=== PATIENT | female | born 1955 | race Caucasian/White ===

== ENCOUNTER 2017-12-30 21:13 | Emergency (ER) | payer BC ==
[~2017-12-30] VITALS: Ht 167.6 cm; Wt 76.2 kg
[~2017-12-30 21:13] MED LIST: AZIT250 PO; AZIT500 PO; CEFP200; CEPH500 PO; CYCL10 PO; Cleocin HCl300 MG PO; DOC250 PO; DOCU100 PO; ESTMEDA; ESTMEDA PO; FAMO20; FEXPSEER PO; FLUT.05NI; FURO20 PO; GUAPSEER PO; HYDACE10B PO; HYDACE25S PR; HYDACE5 PO; HYDACE7.5 PO; HYDCOR1TOA TOP; Hydrocodone-Ap1 EA20 PO; IBUP400; IBUP600 PO; IBUP800; LEVFLO500 PO; MELO7.5 PO; META800 PO; METO10 PO; MONT10T; Mucinex1200 MG PO; NAPR500 PO; NAPR500EC; NAPR550 PO; Norco 5-325 Ta1 EACH PO; OXYACE5T PO; OXYACE7.5T PO; PHENA200 PO; POTCHL20ER PO; PRED10; RXCLIN PO; RXHYDMOR2 PO; RXOXYACE PO; SULTRIDS PO; TEMA15 PO; TEMA30 PO; TIZA4; TRAM50 PO; TRIA55OI; TRIAOIA; Triamterene W/1 EACH; Ultram50 MG PO; Vibramycin100 MG PO; ZOLP12.5 PO; ZOLP5 PO; Zanaflex4 MG PO; [UNRECOGNIZED DRUG - OTHER]; [UNRECOGNIZED DRUG - REMARK]
[2017-12-30 21:45] LABS: BASOPHILS ABSOLUTE AUTO 0.07 K/mm3 (0.00-0.23); BASOPHILS PERCENT AUTO 1 % (0-2); EOSINOPHILS ABSOLUTE AUTO 0.27 K/mm3 (0.00-0.68); EOSINOPHILS PERCENT AUTO 4 % (0-6); Hematocrit 40.9 % (33.0-51.0); Hemoglobin 13.8 g/dL (11.5-16.0); IMMATURE GRAN ABSOLUTE AUTO 0.05 K/mm3 (0.00-0.10); IMMATURE GRAN PERCENT AUTO 1 % (0-1); LYMPHOCYTES ABSOLUTE AUTO 2.53 K/mm3 (0.84-5.20); LYMPHOCYTES PERCENT AUTO 34 % (21-46); MONOCYTES PERCENT AUTO 11 % (4-13); Mean Corpuscular HGB 34.9 pg (26.0-34.0); Mean Corpuscular HGB Conc 33.7 g/dL (31.5-36.5); Mean Corpuscular Volume 104 fL (80-100); NEUTROPHILS ABSOLUTE AUTO 3.64 K/mm3 (1.96-9.15); NEUTROPHILS PERCENT AUTO 49 % (41-73); Platelet Count 231 K/mm3 (150-400); RDW Coefficient Variation 11.4 % (11.7-14.2); RDW Standard Deviation 43.8 fL (35.1-46.3); Red Blood Cell Count 3.95 M/mm3 (3.80-5.20); White Blood Cell Count 7.36 K/mm3 (4.00-11.30)
[2017-12-30 22:01] LABS: Alanine Aminotransfer (ALT/SGP 45 U/L (12-78); Albumin, Blood 3.7 g/dL (3.4-5.0); Alk Phos 153 U/L (50-136); Anion Gap 9 mmol/L (6-16); Aspartate Aminotrans (AST/SGOT 61 U/L (12-37); Bilirubin, Total 0.4 mg/dL (0.1-1.0); Blood Urea Nitrogen 8 mg/dL (8-24); Bun/Creatinine Ratio 13.8 (12.0-20.0); CO2, Blood 26 mmol/L (21-32); Calcium, Blood 8.4 mg/dL (8.5-10.1); Chloride, Blood 102 mmol/L (98-108); Creatinine, Blood 0.58 mg/dL (0.40-1.00); Globulin, Blood 3.8 g/dL (2.2-4.0); Glomerular Filtration Rate >60 (60-); Glucose, Blood 99 mg/dL (70-99); Potassium, Blood 3.6 mmol/L (3.5-5.5); Sodium, Blood 137 mmol/L (136-145); Total Protein, Blood 7.5 g/dL (6.4-8.2)
[2017-12-30] MEDS ORDERED: GENPREOPSU (22:43)
[2017-12-30] MEDS ORDERED: HYDR1TAB94 PO (23:39)
[2017-12-30] MEDS ORDERED: MINO100 PO (23:39)
== END 2017-12-31 00:08 | disposition home or self-care (01) ==
LOC: ER 21:13
PROVIDERS: Emergency Medicine
DX: L03.116 Cellulitis of left lower limb (principal); L03.115 Cellulitis of right lower limb; M54.5 Low back pain; Z88.0 Allergy status to penicillin; Z88.2 Allergy status to sulfonamides; Z79.899 Other long term (current) drug therapy; Z79.52 Long term (current) use of systemic steroids; F17.200 Nicotine dependence, unspecified, uncomplicated
CPT/HCPCS: 36415; 80053; 83605; 85025; 96374; 99283-25; J0690

== ENCOUNTER 2018-08-21 15:45 | Emergency (ER) | payer MEDICARE, OTHER ==
[~2018-08-21] VITALS: Ht 167.6 cm; Wt 77.1 kg
[~2018-08-21 15:45] MED LIST changes: +GENPREOPSU; +HYDR1TAB94 PO; +MINO100 PO
[2018-08-21 16:22] LABS: BASOPHILS ABSOLUTE AUTO 0.07 K/mm3 (0.00-0.23); BASOPHILS PERCENT AUTO 1 % (0-2); EOSINOPHILS ABSOLUTE AUTO 0.19 K/mm3 (0.00-0.68); EOSINOPHILS PERCENT AUTO 3 % (0-6); Hematocrit 40.8 % (33.0-51.0); Hemoglobin 13.4 g/dL (11.5-16.0); IMMATURE GRAN ABSOLUTE AUTO 0.03 K/mm3 (0.00-0.10); IMMATURE GRAN PERCENT AUTO 1 % (0-1); LYMPHOCYTES ABSOLUTE AUTO 1.62 K/mm3 (0.84-5.20); LYMPHOCYTES PERCENT AUTO 26 % (21-46); MONOCYTES ABSOLUTE AUTO 0.59 K/mm3 (0.16-1.47); MONOCYTES PERCENT AUTO 10 % (4-13); Mean Corpuscular HGB 35.2 pg (26.0-34.0); Mean Corpuscular HGB Conc 32.8 g/dL (31.5-36.5); Mean Corpuscular Volume 107 fL (80-100); Mean Platelet Volume 9.3 fL (9.1-12.4); NEUTROPHILS ABSOLUTE AUTO 3.66 K/mm3 (1.96-9.15); NEUTROPHILS PERCENT AUTO 59 % (41-73); Platelet Count 187 K/mm3 (150-400); RDW Coefficient Variation 11.6 % (11.7-14.2); RDW Standard Deviation 45.8 fL (35.1-46.3); Red Blood Cell Count 3.81 M/mm3 (3.80-5.20); White Blood Cell Count 6.16 K/mm3 (4.00-11.30)
[2018-08-21 16:38] LABS: Alanine Aminotransfer (ALT/SGP 64 U/L (12-78); Albumin, Blood 3.5 g/dL (3.4-5.0); Alk Phos 172 U/L (50-136); Anion Gap 6 mmol/L (6-16); Aspartate Aminotrans (AST/SGOT 147 U/L (12-37); Bilirubin, Total 0.7 mg/dL (0.1-1.0); Blood Urea Nitrogen 7 mg/dL (8-24); Bun/Creatinine Ratio 13.9 (12.0-20.0); CO2, Blood 28 mmol/L (21-32); Calcium, Blood 8.4 mg/dL (8.5-10.1); Chloride, Blood 101 mmol/L (98-108); Globulin, Blood 3.5 g/dL (2.2-4.0); Glomerular Filtration Rate >60 (60-); Glucose, Blood 103 mg/dL (70-99); Potassium, Blood 4.1 mmol/L (3.5-5.5); Sodium, Blood 135 mmol/L (136-145)
[2018-08-21] MEDS ORDERED: Percocet 5-3251 EACH PO (17:17)
== END 2018-08-21 17:36 | disposition home or self-care (01) ==
LOC: ER 15:45
PROVIDERS: Physician Assistant
DX: S20.211A Contusion of right front wall of thorax, initial encounter (principal); F17.210 Nicotine dependence, cigarettes, uncomplicated; Z79.899 Other long term (current) drug therapy; Z88.0 Allergy status to penicillin; Z88.2 Allergy status to sulfonamides; W18.09XA Striking against other object with subsequent fall, initial encounter
CPT/HCPCS: 36415; 71046; 80053; 85025; 93005; 93010; 96374; 96375; 99284-25; J2405; J3010

== ENCOUNTER 2018-11-19 15:50 | Emergency (ER) | payer MEDICARE, OTHER ==
[~2018-11-19] VITALS: Ht 167.6 cm; Wt 77.1 kg
[~2018-11-19 15:50] MED LIST changes: +Percocet 5-3251 EACH PO
[2018-11-19] MEDS ORDERED: Percocet 5-3251 EACH PO (16:05)
== END 2018-11-19 16:08 | disposition home or self-care (01) ==
LOC: ER 15:50
DX: L25.9 Unspecified contact dermatitis, unspecified cause (principal); Z76.0 Encounter for issue of repeat prescription; Z88.0 Allergy status to penicillin; Z88.2 Allergy status to sulfonamides; Z79.899 Other long term (current) drug therapy; F17.200 Nicotine dependence, unspecified, uncomplicated
CPT/HCPCS: 99281

== ENCOUNTER 2019-01-16 16:14 | Emergency (ER) | payer MEDICARE, OTHER ==
[~2019-01-16] VITALS: Ht 167.6 cm; Wt 70.3 kg
[2019-01-16] MEDS ORDERED: Norco 5-325 Ta1 EACH PO (17:37)
== END 2019-01-16 17:40 | disposition home or self-care (01) ==
LOC: ER 16:14
DX: M25.561 Pain in right knee (principal); Z88.2 Allergy status to sulfonamides; Z79.899 Other long term (current) drug therapy; F17.200 Nicotine dependence, unspecified, uncomplicated; Z88.0 Allergy status to penicillin
CPT/HCPCS: 99283

== ENCOUNTER 2019-03-03 18:48 | Emergency (ER) | payer MEDICARE, OTHER ==
[~2019-03-03] VITALS: Ht 167.6 cm; Wt 72.6 kg
[2019-03-03] MEDS ORDERED: HYDR1TAB94 PO ×3 (19:08→20:01)
[2019-03-03] MEDS ORDERED: Prempro 0.625-1 EACH PO (19:11)
[2019-03-03] MEDS ORDERED: Hydrocodone-Ap1 EA20 PO (19:12)
== END 2019-03-03 19:33 | disposition home or self-care (01) ==
LOC: ER 18:48
DX: S82.891D Other fracture of right lower leg, subsequent encounter for closed fracture with routine healing (principal); Z76.0 Encounter for issue of repeat prescription; F17.200 Nicotine dependence, unspecified, uncomplicated; Z88.0 Allergy status to penicillin; Z88.2 Allergy status to sulfonamides
CPT/HCPCS: 99281

== ENCOUNTER 2019-05-09 07:54 | Emergency (ER) | payer MEDICARE, OTHER ==
[~2019-05-09] VITALS: Ht 167.6 cm; Wt 68.0 kg
[~2019-05-09 07:54] MED LIST changes: +Prempro 0.625-1 EACH PO
[2019-05-09 08:35] LABS: BASOPHILS ABSOLUTE AUTO 0.07 K/mm3 (0.00-0.23); BASOPHILS PERCENT AUTO 1 % (0-2); EOSINOPHILS ABSOLUTE AUTO 0.26 K/mm3 (0.00-0.68); EOSINOPHILS PERCENT AUTO 4 % (0-6); Hematocrit 42.1 % (33.0-51.0); Hemoglobin 14.1 g/dL (11.5-16.0); IMMATURE GRAN ABSOLUTE AUTO 0.05 K/mm3 (0.00-0.10); IMMATURE GRAN PERCENT AUTO 1 % (0-1); LYMPHOCYTES ABSOLUTE AUTO 2.42 K/mm3 (0.84-5.20); LYMPHOCYTES PERCENT AUTO 32 % (21-46); MONOCYTES ABSOLUTE AUTO 0.83 K/mm3 (0.16-1.47); MONOCYTES PERCENT AUTO 11 % (4-13); Mean Corpuscular HGB 34.8 pg (26.0-34.0); Mean Corpuscular HGB Conc 33.5 g/dL (31.5-36.5); Mean Corpuscular Volume 104 fL (80-100); Mean Platelet Volume 8.9 fL (9.1-12.4); NEUTROPHILS ABSOLUTE AUTO 3.89 K/mm3 (1.96-9.15); NEUTROPHILS PERCENT AUTO 52 % (41-73); Platelet Count 264 K/mm3 (150-400); RDW Coefficient Variation 12.5 % (11.7-14.2); Red Blood Cell Count 4.05 M/mm3 (3.80-5.20); White Blood Cell Count 7.52 K/mm3 (4.00-11.30)
[2019-05-09 08:52] LABS: Alanine Aminotransfer (ALT/SGP 59 U/L (12-78); Albumin, Blood 3.6 g/dL (3.4-5.0); Albumin/Globulin Ratio 0.9 (0.8-1.8); Alk Phos 183 U/L (50-136); Anion Gap 10 mmol/L (6-16); Aspartate Aminotrans (AST/SGOT 102 U/L (12-37); Bilirubin, Total 0.4 mg/dL (0.1-1.0); Blood Urea Nitrogen 4 mg/dL (8-24); Bun/Creatinine Ratio 8.7 (12.0-20.0); CO2, Blood 28 mmol/L (21-32); Calcium, Blood 8.9 mg/dL (8.5-10.1); Chloride, Blood 103 mmol/L (98-108); Creatinine, Blood 0.46 mg/dL (0.40-1.00); Globulin, Blood 3.9 g/dL (2.2-4.0); Glomerular Filtration Rate >60 (60-); Glucose, Blood 81 mg/dL (70-99); Potassium, Blood 3.2 mmol/L (3.5-5.5); Sodium, Blood 141 mmol/L (136-145); Total Protein, Blood 7.5 g/dL (6.4-8.2)
[2019-05-09] MEDS ORDERED: CEPH500 PO (09:14)
[2019-05-09] MEDS ORDERED: HYDR1TAB94 PO (09:18)
== END 2019-05-09 09:25 | disposition home or self-care (01) ==
LOC: ER 07:54
PROVIDERS: Physician Assistant
DX: L03.115 Cellulitis of right lower limb (principal); F17.200 Nicotine dependence, unspecified, uncomplicated; Z88.0 Allergy status to penicillin; Z88.2 Allergy status to sulfonamides
CPT/HCPCS: 36415; 80053; 85025; 93971; 99284-25; A9270-GY

== ENCOUNTER 2019-08-28 05:23 | Emergency (ER) | payer MEDICARE, OTHER ==
[~2019-08-28] VITALS: Ht 167.6 cm; Wt 72.6 kg
== END 2019-08-28 07:12 | disposition home or self-care (01) ==
LOC: ER 05:23
DX: S09.90XA Unspecified injury of head, initial encounter (principal); S30.0XXA Contusion of lower back and pelvis, initial encounter; S20.02XA Contusion of left breast, initial encounter; J30.9 Allergic rhinitis, unspecified; F17.210 Nicotine dependence, cigarettes, uncomplicated; Z88.0 Allergy status to penicillin; Z88.2 Allergy status to sulfonamides; W19.XXXA Unspecified fall, initial encounter
CPT/HCPCS: 99283; A9270

== ENCOUNTER 2019-09-19 22:45 | Emergency (ER) | payer MEDICARE ==
[~2019-09-19] VITALS: Ht 167.6 cm; Wt 70.8 kg
[2019-09-19] MEDS ORDERED: TRAM50 PO (23:18)
== END 2019-09-19 23:30 | disposition home or self-care (01) ==
LOC: ER 22:45
DX: S93.401A Sprain of unspecified ligament of right ankle, initial encounter (principal); F17.210 Nicotine dependence, cigarettes, uncomplicated; Z88.0 Allergy status to penicillin; Z88.2 Allergy status to sulfonamides
CPT/HCPCS: 73610; 99283-25; A9270

== ENCOUNTER 2019-10-04 23:01 | Emergency (ER) | payer MEDICARE ==
[~2019-10-04] VITALS: Ht 167.6 cm; Wt 68.0 kg
[2019-10-05 01:02] LABS: BASOPHILS ABSOLUTE AUTO 0.07 K/mm3 (0.00-0.23); BASOPHILS PERCENT AUTO 1 % (0-2); EOSINOPHILS ABSOLUTE AUTO 0.17 K/mm3 (0.00-0.68); EOSINOPHILS PERCENT AUTO 2 % (0-6); Hematocrit 43.5 % (33.0-51.0); Hemoglobin 14.8 g/dL (11.5-16.0); IMMATURE GRAN ABSOLUTE AUTO 0.12 K/mm3 (0.00-0.10); IMMATURE GRAN PERCENT AUTO 1 % (0-1); LYMPHOCYTES ABSOLUTE AUTO 2.45 K/mm3 (0.84-5.20); LYMPHOCYTES PERCENT AUTO 27 % (21-46); MONOCYTES ABSOLUTE AUTO 0.91 K/mm3 (0.16-1.47); MONOCYTES PERCENT AUTO 10 % (4-13); Mean Corpuscular HGB 35.7 pg (26.0-34.0); Mean Corpuscular Volume 105 fL (80-100); Mean Platelet Volume 9.2 fL (9.1-12.4); NEUTROPHILS ABSOLUTE AUTO 5.37 K/mm3 (1.96-9.15); NEUTROPHILS PERCENT AUTO 59 % (41-73); Platelet Count 246 K/mm3 (150-400); RDW Coefficient Variation 11.7 % (11.7-14.2); RDW Standard Deviation 45.1 fL (35.1-46.3); Red Blood Cell Count 4.15 M/mm3 (3.80-5.20); White Blood Cell Count 9.09 K/mm3 (4.00-11.30)
[2019-10-05 01:14] LABS: Ethanol (Alcohol), Blood, Med 18 mg/dL
[2019-10-05 01:15] LABS: International Normalized Ratio 1.04; Prothrombin Time Results 11.1 Sec (9.7-11.5)
[2019-10-05 01:19] LABS: Alanine Aminotransfer (ALT/SGP 28 U/L (12-78); Albumin, Blood 3.3 g/dL (3.4-5.0); Albumin/Globulin Ratio 0.8 (0.8-1.8); Alk Phos 116 U/L (50-136); Anion Gap 9 mmol/L (6-16); Aspartate Aminotrans (AST/SGOT 36 U/L (12-37); Bilirubin, Total 0.6 mg/dL (0.1-1.0); Blood Urea Nitrogen 4 mg/dL (8-24); Bun/Creatinine Ratio 7.8 (12.0-20.0); CO2, Blood 26 mmol/L (21-32); Calcium, Blood 8.8 mg/dL (8.5-10.1); Chloride, Blood 103 mmol/L (98-108); Creatinine, Blood 0.51 mg/dL (0.40-1.00); Globulin, Blood 3.9 g/dL (2.2-4.0); Glomerular Filtration Rate >60 (60-); Glucose, Blood 76 mg/dL (70-99); Potassium, Blood 3.4 mmol/L (3.5-5.5); Sodium, Blood 138 mmol/L (136-145); Total Protein, Blood 7.2 g/dL (6.4-8.2); Troponin I <0.015 ng/mL (0.000-0.040)
[2019-10-05 01:53] LABS: Source, Urine Clean Catch
[2019-10-05 02:04] LABS: Bilirubin, Urine Neg (Neg); Blood, Urine Neg (Neg); Glucose Qualitative, Urine Neg (Neg); Ketones, Urine Neg (Neg); Leukocyte Esterase, Urine 1+ (Neg); Nitrite, Urine Neg (Neg); Protein, Urine Neg (Neg); Specific Gravity, Urine 1.005 (1.003-1.022); Urobilinogen, Urine NORM (Normal)
[2019-10-05 02:05] LABS: Appearance, Urine Clear (Clear); Color, Urine Yellow (P-Yellow)
[2019-10-05 02:13] LABS: Red Blood Cells, Urine 0-2 /hpf (0-2); Squamous Epithelial Cells Few /hpf (Few)
[2019-10-05 02:14] LABS: Bacteria Mod /hpf
[2019-10-05 02:37] LABS: U Amphetamine Screen Not Detected; U Barbituate Screen Not Detected; U Benzodiazapine Screen Not Detected; U Buprenorphine Screen Not Detected; U Cannabinoids Screen Not Detected; U Cocaine Screen Not Detected; U Methadone Screen Not Detected; U Methamphetamine Screen Not Detected; U Opiates Screen Not Detected; U Oxycodone Screen Not Detected; U Phencyclidine Screen Not Detected; U Propoxyphene Screen Not Detected
[2019-10-05] MEDS ORDERED: Norco 5-325 Ta1 EACH PO (10:46)
== END 2019-10-05 03:43 | disposition home or self-care (01) ==
LOC: ER 23:01
PROVIDERS: Physician Assistant
DX: S09.90XA Unspecified injury of head, initial encounter (principal); Z88.0 Allergy status to penicillin; Z88.2 Allergy status to sulfonamides; F17.210 Nicotine dependence, cigarettes, uncomplicated; W22.8XXA Striking against or struck by other objects, initial encounter
CPT/HCPCS: 70450; 71260; 72125; 74177; 80053; 81001; 83690; 84484; 85025; 85610; 87086; 93005; 93010; 99284-25; A9270-GY; G0480; L0160; Q9967

== ENCOUNTER 2019-10-05 09:35 | Emergency (ER) | payer MEDICARE ==
[~2019-10-05] VITALS: Ht 167.6 cm; Wt 68.0 kg
[2019-10-05] MEDS ORDERED: Norco 5-325 Ta1 EACH PO (10:46)
== END 2019-10-05 10:53 | disposition home or self-care (01) ==
LOC: ER 09:35
DX: G89.11 Acute pain due to trauma (principal); M79.18 Myalgia, other site; Z88.0 Allergy status to penicillin; Z88.2 Allergy status to sulfonamides; F17.210 Nicotine dependence, cigarettes, uncomplicated; W19.XXXA Unspecified fall, initial encounter
CPT/HCPCS: 99283

== ENCOUNTER 2019-10-27 02:37 | Inpatient (IN) | payer MEDICARE ==
[~2019-10-27] VITALS: Ht 167.6 cm; Wt 85.9 kg
[2019-10-27 03:16] LABS: BASOPHILS ABSOLUTE AUTO 0.11 K/mm3 (0.00-0.23); BASOPHILS PERCENT AUTO 1 % (0-2); EOSINOPHILS ABSOLUTE AUTO 0.01 K/mm3 (0.00-0.68); EOSINOPHILS PERCENT AUTO 0 % (0-6); Hematocrit 46.9 % (33.0-51.0); Hemoglobin 15.8 g/dL (11.5-16.0); IMMATURE GRAN ABSOLUTE AUTO 0.11 K/mm3 (0.00-0.10); IMMATURE GRAN PERCENT AUTO 1 % (0-1); LYMPHOCYTES PERCENT AUTO 6 % (21-46); MONOCYTES PERCENT AUTO 5 % (4-13); Mean Corpuscular HGB 34.7 pg (26.0-34.0); Mean Corpuscular HGB Conc 33.7 g/dL (31.5-36.5); Mean Corpuscular Volume 103 fL (80-100); NEUTROPHILS ABSOLUTE AUTO 13.94 K/mm3 (1.96-9.15); NEUTROPHILS PERCENT AUTO 88 % (41-73); RDW Coefficient Variation 11.6 % (11.7-14.2); RDW Standard Deviation 43.9 fL (35.1-46.3); Red Blood Cell Count 4.55 M/mm3 (3.80-5.20); White Blood Cell Count 15.87 K/mm3 (4.00-11.30)
[2019-10-27 03:21] LABS: Mean Platelet Volume 9.2 fL (9.1-12.4); Platelet Count 245 K/mm3 (150-400)
[2019-10-27 03:27] LABS: Alanine Aminotransfer (ALT/SGP 29 U/L (12-78); Albumin, Blood 3.6 g/dL (3.4-5.0); Albumin/Globulin Ratio 0.8 (0.8-1.8); Alk Phos 190 U/L (50-136); Anion Gap 9 mmol/L (6-16); Aspartate Aminotrans (AST/SGOT 42 U/L (12-37); Bilirubin, Total 0.7 mg/dL (0.1-1.0); Blood Urea Nitrogen 6 mg/dL (8-24); Bun/Creatinine Ratio 10.8 (12.0-20.0); CO2, Blood 26 mmol/L (21-32); Chloride, Blood 99 mmol/L (98-108); Creatinine, Blood 0.56 mg/dL (0.40-1.00); Globulin, Blood 4.3 g/dL (2.2-4.0); Glomerular Filtration Rate >60 (60-); Glucose, Blood 91 mg/dL (70-99); Potassium, Blood 3.8 mmol/L (3.5-5.5); Sodium, Blood 134 mmol/L (136-145); Total Protein, Blood 7.9 g/dL (6.4-8.2)
--- NOTE | 2019-10-27 05:21 | NUR ---
PT ARRIVED TO ROOM VIA GURNEY, TRANSFERED TO BED. PT C/O PAIN, NO ORDERS FOR PAIN MEDS. PLACED CALL OUT TO DR. STEWART. PT REFUSING TO MOVE IN BED AT THIS TIME.
--- NOTE | 2019-10-27 11:28 | NUR ---
DR INGRAM HERE TO SEE PT.
[2019-10-27 11:50] LABS: Source, Urine Voided
[2019-10-27 12:11] LABS: Bilirubin, Urine Neg (Neg); Blood, Urine 1+ (Neg); Glucose Qualitative, Urine Neg (Neg); Ketones, Urine 2+ (Neg); Leukocyte Esterase, Urine 3+ (Neg); Nitrite, Urine Neg (Neg); Protein, Urine Neg (Neg); Specific Gravity, Urine 1.025 (1.003-1.022); Urobilinogen, Urine NORM (Normal)
[2019-10-27 12:24] LABS: Appearance, Urine Clear (Clear); Color, Urine Amber (P-Yellow)
[2019-10-27 12:25] LABS: Bacteria Mod /hpf; Squamous Epithelial Cells Mod /hpf (Few); White Blood Cells, Urine 25-50 /hpf (0-5); Yeast/Fungi Urine Few /hpf
--- NOTE | 2019-10-27 13:26 | NUR ---
DR INGRAM HERE TO SEE PT, REPORTS PT MAY EAT AND NPO AFTER MIDNIGHT. REPORTS IF PT ALLOWS MAY PLACE 5# BUCKS TRACTION.
--- NOTE | 2019-10-27 18:35 | NUR ---
SHIFT SUMMARY PT NOW EATING AND DRINKING, TO BE NPO AFTER MN. PT BEEN MED PRN FOR PAIN MULT TIMES TODAY. PT REFUSING CARE AT TIMES. BRANTLEY WAS PLACED THIS AFTERNOON BY FEMALE PROFILE TRIMMER. LINEN WAS REMOVED FROM UNDER HER AFTER SHE WAS MEDICATED FOR PAIN. PT MORE COOPERATIVE THIS EVENING. MULT DR BEEN TO SEE PT, DISCUSSED PT'S STATUS WITH THEM INCLUDING LABS, PAIN, IRRITABILITY. PT CONT TO REFUSE SOME OF CARE. CALL LIGHT IN REACH. IVF IN PLACE.
[2019-10-27 19:54] LABS: Source, Urine Catheter
--- NOTE | 2019-10-27 20:00 | NUR ---
ASSUMED PT CARE AT 1915 PT ALERT AND ORIENTED AND ABLE TO MAKE HER NEEDS KNOWN. STATES SHE IS VERY PAINFUL AND REQUESTING IV PAIN MEDS. STATES SHE WAS DUE AT 1900; HOWEVER, KNEW THAT NURSING STAFF WAS BUSY WITH CHANGE OF SHIFT. PT APPEARS VERY ANXIOUS REGARDING PAIN. MEDICATED WITH 50MCG OF FENTANYL PER ORDERS WITH MINIMAL RELIEF. PT REFUSING TO BE TURNED OR REPOSITIONED D/T PAIN IN LEFT HIP. STATES HER APPETITE IS POOR. REMINDED PT SHE WOULD BE NPO AT MIDNIGHT FOR SURGERY TOMORROW JUST IN CASE SHE FELT HUNGRY PRIOR. NS CONTINUES INFUSING AT 75MLS/HR X1L BAG; ALMOST COMPLETE. CALL LIGHT WITHIN REACH.
[2019-10-27 20:07] LABS: Bilirubin, Urine Neg (Neg); Blood, Urine Neg (Neg); Glucose Qualitative, Urine Neg (Neg); Ketones, Urine 1+ (Neg); Leukocyte Esterase, Urine Neg (Neg); Nitrite, Urine Neg (Neg); Protein, Urine Neg (Neg); Urobilinogen, Urine NORM (Normal)
[2019-10-27 20:20] LABS: Appearance, Urine Clear (Clear); Color, Urine Yellow (P-Yellow)
--- NOTE | 2019-10-27 20:31 | NUR ---
PT OFF TO XRAY
--- NOTE | 2019-10-27 21:00 | NUR ---
PT RETURNED FROM XRAY TRANSFERRED BACK INTO BED WITH THE ASSIST OF 5 STAFF MEMBERS. PT HIGHLY ANXIOUS REGARDING ANY MOVEMENT TO LEFT HIP. EDUCATED AND REASSURED PT THAT WE WOULD HELP WITH STABILIZING LEG. PT TOLERATED FAIRLY; HOLLERED OUT IN PAIN, BUT ABLE TO RECOVER.
--- NOTE | 2019-10-28 05:26 | NUR ---
END OF SHIFT SUMMARY PT REMAINS PAINFUL MOST OF SHIFT. CALLS FREQUENTLY ASKING FOR PAIN MEDICATIONS. DISCUSSED MULTIPLE TIMES WITH PT REALISTIC GOALS OF PAIN LEVEL AND MANAGEMENT. SHE APPEARS TO BE NONSENSICAL AT TIMES AND CONFUSES HER TIMING OF MEDICATION ADMINISTRATION. PT BECOMES VERY IRRITABLE IF SHE IS NOT DUE FOR ANY PAIN MEDS. DISCUSSED TECHNIQUE OF STACKING PAIN MEDICATIONS TO MAKE AVAILABLE EVERY TWO HOURS; THEREFORE, SHE WASN'T GETTING EVERYTHING AT THE BEGINNING OF HER FOUR HOUR TIME FRAME. HOWEVER, PT STILL INSISTENT ON RECEIVING PAIN MEDICATIONS WHENEVER SHE REQUESTS THEM. SEE EMAR FOR MED ADMINISTRATION DETAILS. PT REFUSED TURNING AND REPOSITIONING MOST OF SHIFT D/T FEAR OF LEFT HIP PAIN. AT 0400 ROUNDS PT DID ALLOW ME TO POSITION A PILLOW UNDER HER RIGHT HIP TO OFFLOAD PRESSURE, WHICH APPEARED EFFECTIVE FOR HER. CALL LIGHT WITHIN REACH; PT IS ABLE TO MAKE HER NEEDS KNOWN. BRANTLEY CATHETER IS PATENT AND DRAINING TO GRAVITY; DARK, JOANNA COLORED URINE. 18G STARTED TO LEFT AC D/T ONLY ACCESS BEING A 22G TO RIGHT FA. PT SCHEDULED FOR SURGERY THIS MORNING AND HAS BEEN NPO AFTER MIDNIGHT.
[2019-10-28 05:30] LABS: BASOPHILS ABSOLUTE AUTO 0.06 K/mm3 (0.00-0.23); BASOPHILS PERCENT AUTO 1 % (0-2); EOSINOPHILS ABSOLUTE AUTO 0.14 K/mm3 (0.00-0.68); EOSINOPHILS PERCENT AUTO 2 % (0-6); Hematocrit 44.4 % (33.0-51.0); Hemoglobin 14.7 g/dL (11.5-16.0); IMMATURE GRAN ABSOLUTE AUTO 0.07 K/mm3 (0.00-0.10); IMMATURE GRAN PERCENT AUTO 1 % (0-1); LYMPHOCYTES ABSOLUTE AUTO 1.45 K/mm3 (0.84-5.20); LYMPHOCYTES PERCENT AUTO 18 % (21-46); MONOCYTES ABSOLUTE AUTO 0.69 K/mm3 (0.16-1.47); MONOCYTES PERCENT AUTO 9 % (4-13); Mean Corpuscular HGB Conc 33.1 g/dL (31.5-36.5); Mean Platelet Volume 9.9 fL (9.1-12.4); NEUTROPHILS ABSOLUTE AUTO 5.75 K/mm3 (1.96-9.15); NEUTROPHILS PERCENT AUTO 70 % (41-73); Platelet Count 197 K/mm3 (150-400); RDW Coefficient Variation 11.7 % (11.7-14.2); RDW Standard Deviation 45.1 fL (35.1-46.3); White Blood Cell Count 8.16 K/mm3 (4.00-11.30)
[2019-10-28 05:35] LABS: Mean Corpuscular Volume 106 fL (80-100)
[2019-10-28 05:57] LABS: Alanine Aminotransfer (ALT/SGP 21 U/L (12-78); Albumin, Blood 2.7 g/dL (3.4-5.0); Albumin/Globulin Ratio 0.8 (0.8-1.8); Alk Phos 150 U/L (50-136); Anion Gap 5 mmol/L (6-16); Aspartate Aminotrans (AST/SGOT 29 U/L (12-37); Bilirubin, Total 1.2 mg/dL (0.1-1.0); Blood Urea Nitrogen 7 mg/dL (8-24); Bun/Creatinine Ratio 10.8 (12.0-20.0); CO2, Blood 32 mmol/L (21-32); Calcium, Blood 8.5 mg/dL (8.5-10.1); Chloride, Blood 98 mmol/L (98-108); Creatinine, Blood 0.65 mg/dL (0.40-1.00); Globulin, Blood 3.6 g/dL (2.2-4.0); Glomerular Filtration Rate >60 (60-); Glucose, Blood 74 mg/dL (70-99); Potassium, Blood 3.7 mmol/L (3.5-5.5); Sodium, Blood 135 mmol/L (136-145); Total Protein, Blood 6.3 g/dL (6.4-8.2)
--- NOTE | 2019-10-28 08:36 | NUR ---
10/28/19 0836 Rubina Branch PT ENTERED OR WITH BRANTLEY CATHETER IN PLACE
--- NOTE | 2019-10-28 18:12 | NUR ---
SHIFT SUMMARY POD #0 RIGHT TOTAL HIP. DRSG REMAINS C/D/I, CIRC WNL, PT DENIES N/T TO TOES, VSS, TOLERATING PO INTAKE, SCD'S ARE ON, ABX INFUSED PER EMAR. PAIN MANAGED POST OP WITH 2 PERCOCET. BRANTLEY WILL BE REMOOVED & PT WILL BE ENC TO AMBULATE AFTER SHE FINISHES DINNER. CALL LIGHT IN REACH, TM
[2019-10-29 03:57] LABS: BASOPHILS ABSOLUTE AUTO 0.03 K/mm3 (0.00-0.23); BASOPHILS PERCENT AUTO 0 % (0-2); EOSINOPHILS PERCENT AUTO 0 % (0-6); Hematocrit 37.5 % (33.0-51.0); Hemoglobin 12.4 g/dL (11.5-16.0); IMMATURE GRAN ABSOLUTE AUTO 0.13 K/mm3 (0.00-0.10); IMMATURE GRAN PERCENT AUTO 1 % (0-1); LYMPHOCYTES ABSOLUTE AUTO 1.18 K/mm3 (0.84-5.20); LYMPHOCYTES PERCENT AUTO 8 % (21-46); MONOCYTES ABSOLUTE AUTO 0.93 K/mm3 (0.16-1.47); MONOCYTES PERCENT AUTO 7 % (4-13); Mean Corpuscular HGB Conc 33.1 g/dL (31.5-36.5); Mean Corpuscular Volume 106 fL (80-100); Mean Platelet Volume 9.2 fL (9.1-12.4); NEUTROPHILS ABSOLUTE AUTO 11.79 K/mm3 (1.96-9.15); NEUTROPHILS PERCENT AUTO 84 % (41-73); Platelet Count 190 K/mm3 (150-400); RDW Coefficient Variation 11.5 % (11.7-14.2); RDW Standard Deviation 44.7 fL (35.1-46.3); Red Blood Cell Count 3.54 M/mm3 (3.80-5.20); White Blood Cell Count 14.06 K/mm3 (4.00-11.30)
--- NOTE | 2019-10-29 04:46 | NUR ---
SHIFT SUMMARY HAS BEEN CONFUSED, BUT IS ABLE TO BE REORIENTED AND FOLLOWS COMMANDS. SPOKE OF SPOUSES 4 MONTHS AGO AND HER OWN STRUGGLES TO COPE WITH LIFE SINCE HIS PASSING. HAS HAD PAIN ISSUES THS SHIFT DUE TO EXPECTING TO BE PAIN FREE. NURSING EDUCATED HER ON PAIN MANAGEMENT AND WHAT TO EXPECT, VOICES UNDERSTANDING. MEDICATED FOR PAIN X4 THIS SHIFT. DENIES FURTHER NEEDS OR WANTS AT THIS TIME. SAFETY MEASURES IN PLACE. WILL GIVE HAND OFF TO ONCOMING SHIFT USING SBAR DURING BEDSIDE REPORT.
--- NOTE | 2019-10-30 04:55 | NUR ---
SHIFT SUMMARY AAOX4, PT HAD SOME CONFUSION WHEN FIRST AWAKENING, SHE WAS ABLE TO BE REDIRECTED BUT WOULD QUESTION WHY HER HIP HURT AND NEEDED REMINDERS. PT UP MULTIPLE TIMES TO BSC, FOLLOWS HIP PRECAUTIONS WELL. SBA, FWW. PT TOLERATING PO PAIN MEDS FOR PAIN, MEDICATED PER EMAR. BED ALARM ON DURING THE NIGHT. CIWA SCORES <8 THROUGH THE NIGHT. VOIDING FREQUENTLY T/O NIGHT.
[2019-10-30] MEDS ORDERED: TUMS500 MG PO (10:38)
[2019-10-30] MEDS ORDERED: Percocet 5-3251 EACH PO (10:39)
[2019-10-30] MEDS ORDERED: XARELTO20 MG PO (10:39)
--- NOTE | 2019-10-30 13:00 | NUR ---
TRANSFER SUMMARY PT A&OX4, VSS, LEFT FLOOR VIA WC WITH ALL PERSONAL POSSESSIONS TO GO TO [facility]. REPORT CALLED TO TOM AT . IV DC'D
== END 2019-10-30 13:14 | DRG 470 ==
LOC: ER 02:37 → SURS 04:27
PROVIDERS: Emergency Medicine; Hospitalist; Orthopaedic Surgery; ADMIT Internal Medicine
PROC: 0SRB04A Replacement of Left Hip Joint with Ceramic on Polyethylene Synthetic Substitute, Uncemented, Open Approach (ICD-10-PCS; principal; 2019-10-28 07:30)
DX: M16.12 Unilateral primary osteoarthritis, left hip (principal); M81.0 Age-related osteoporosis without current pathological fracture; F10.10 Alcohol abuse, uncomplicated; G31.84 Mild cognitive impairment of uncertain or unknown etiology; W19.XXXA Unspecified fall, initial encounter; F17.210 Nicotine dependence, cigarettes, uncomplicated; Z88.0 Allergy status to penicillin; Z88.2 Allergy status to sulfonamides
CPT/HCPCS: 36415; 71045; 72170; 73502; 73552; 80053; 81001; 81003; 85025; 85027; 87086; 93005; 93010; 96374; 96375; 97110; 97161; 97166; 97535; 99283-25; C1713; C1776; J0171; J0690; J0735; J1100; J1170; J1885; J1956; J2250; J2405; J2704; J2765; J2795; J3010; J7030

== ENCOUNTER 2020-05-08 20:43 | Observation (INO) | payer MEDICARE ==
[~2020-05-08] VITALS: Ht 157.5 cm; Wt 73.8 kg
[~2020-05-08 20:43] MED LIST changes: +Hydrocodone-Ap1 EA23 PO; +TUMS500 MG PO; +XARELTO15 MG PO
[2020-05-08 21:42] LABS: BASOPHILS ABSOLUTE AUTO 0.05 K/mm3 (0.00-0.23); BASOPHILS PERCENT AUTO 1 % (0-2); EOSINOPHILS PERCENT AUTO 0 % (0-6); Hematocrit 44.9 % (33.0-51.0); Hemoglobin 14.9 g/dL (11.5-16.0); IMMATURE GRAN ABSOLUTE AUTO 0.04 K/mm3 (0.00-0.10); IMMATURE GRAN PERCENT AUTO 1 % (0-1); LYMPHOCYTES ABSOLUTE AUTO 1.65 K/mm3 (0.84-5.20); LYMPHOCYTES PERCENT AUTO 23 % (21-46); MONOCYTES PERCENT AUTO 6 % (4-13); Mean Corpuscular HGB 35.3 pg (26.0-34.0); Mean Corpuscular HGB Conc 33.2 g/dL (31.5-36.5); Mean Corpuscular Volume 106 fL (80-100); Mean Platelet Volume 8.8 fL (9.1-12.4); NEUTROPHILS PERCENT AUTO 70 % (41-73); Platelet Count 236 K/mm3 (150-400); RDW Coefficient Variation 12.4 % (11.7-14.2); RDW Standard Deviation 49.8 fL (35.1-46.3); Red Blood Cell Count 4.22 M/mm3 (3.80-5.20); White Blood Cell Count 7.24 K/mm3 (4.00-11.30)
[2020-05-08 22:02] LABS: Source, Urine Clean Catch
[2020-05-08 22:03] LABS: Alanine Aminotransfer (ALT/SGP 24 U/L (12-78); Albumin, Blood 3.5 g/dL (3.4-5.0); Albumin/Globulin Ratio 0.8 (0.8-1.8); Alk Phos 199 U/L (50-136); Anion Gap 6 mmol/L (6-16); Aspartate Aminotrans (AST/SGOT 46 U/L (12-37); Bilirubin, Total 1.2 mg/dL (0.1-1.0); Blood Urea Nitrogen 6 mg/dL (8-24); Bun/Creatinine Ratio 10.7 (12.0-20.0); CO2, Blood 30 mmol/L (21-32); Calcium, Blood 9.3 mg/dL (8.5-10.1); Chloride, Blood 100 mmol/L (98-108); Creatinine, Blood 0.56 mg/dL (0.40-1.00); Ethanol (Alcohol), Blood, Med <3 mg/dL; Globulin, Blood 4.3 g/dL (2.2-4.0); Glomerular Filtration Rate >60 (60-); Glucose, Blood 94 mg/dL (70-99); Sodium, Blood 136 mmol/L (136-145); Total Protein, Blood 7.8 g/dL (6.4-8.2); Troponin I <0.015 ng/mL (0.000-0.040)
[2020-05-08 22:04] LABS: Bilirubin, Urine Neg (Neg); Blood, Urine Neg (Neg); Glucose Qualitative, Urine Neg (Neg); Ketones, Urine Neg (Neg); Leukocyte Esterase, Urine Neg (Neg); Nitrite, Urine Neg (Neg); Protein, Urine Neg (Neg); Specific Gravity, Urine 1.015 (1.003-1.022); Urobilinogen, Urine NORM (Normal)
[2020-05-08 22:12] LABS: Appearance, Urine Clear (Clear); Color, Urine Yellow (P-Yellow)
[2020-05-08 22:47] LABS: U Amphetamine Screen Not Detected; U Barbituate Screen Not Detected; U Benzodiazapine Screen Not Detected; U Buprenorphine Screen Not Detected; U Cannabinoids Screen Not Detected; U Cocaine Screen Not Detected; U Methadone Screen Not Detected; U Methamphetamine Screen Not Detected; U Opiates Screen Not Detected; U Oxycodone Screen Not Detected; U Phencyclidine Screen Not Detected; U Propoxyphene Screen Not Detected
[2020-05-09 04:06] LABS: BASOPHILS ABSOLUTE AUTO 0.04 K/mm3 (0.00-0.23); BASOPHILS PERCENT AUTO 1 % (0-2); EOSINOPHILS PERCENT AUTO 0 % (0-6); Hemoglobin 14.4 g/dL (11.5-16.0); IMMATURE GRAN ABSOLUTE AUTO 0.02 K/mm3 (0.00-0.10); IMMATURE GRAN PERCENT AUTO 0 % (0-1); LYMPHOCYTES ABSOLUTE AUTO 1.76 K/mm3 (0.84-5.20); LYMPHOCYTES PERCENT AUTO 31 % (21-46); MONOCYTES ABSOLUTE AUTO 0.34 K/mm3 (0.16-1.47); MONOCYTES PERCENT AUTO 6 % (4-13); Mean Corpuscular HGB 35.6 pg (26.0-34.0); Mean Corpuscular HGB Conc 33.5 g/dL (31.5-36.5); Mean Corpuscular Volume 106 fL (80-100); Mean Platelet Volume 8.9 fL (9.1-12.4); NEUTROPHILS ABSOLUTE AUTO 3.53 K/mm3 (1.96-9.15); NEUTROPHILS PERCENT AUTO 62 % (41-73); Platelet Count 242 K/mm3 (150-400); RDW Coefficient Variation 12.3 % (11.7-14.2); RDW Standard Deviation 48.7 fL (35.1-46.3); Red Blood Cell Count 4.05 M/mm3 (3.80-5.20); White Blood Cell Count 5.69 K/mm3 (4.00-11.30)
[2020-05-09 04:25] LABS: Alanine Aminotransfer (ALT/SGP 21 U/L (12-78); Albumin, Blood 3.3 g/dL (3.4-5.0); Albumin/Globulin Ratio 0.8 (0.8-1.8); Alk Phos 182 U/L (50-136); Anion Gap 4 mmol/L (6-16); Aspartate Aminotrans (AST/SGOT 38 U/L (12-37); Bilirubin, Total 1.3 mg/dL (0.1-1.0); Blood Urea Nitrogen 6 mg/dL (8-24); Bun/Creatinine Ratio 9.9 (12.0-20.0); CO2, Blood 34 mmol/L (21-32); Calcium, Blood 9.3 mg/dL (8.5-10.1); Chloride, Blood 102 mmol/L (98-108); Glomerular Filtration Rate >60 (60-); Glucose, Blood 89 mg/dL (70-99); Potassium, Blood 3.8 mmol/L (3.5-5.5); Sodium, Blood 140 mmol/L (136-145); Total Protein, Blood 7.3 g/dL (6.4-8.2)
--- NOTE | 2020-05-09 07:58 | NUR ---
SHIFT SUMMARY PT ARRIVED TO THE UNIT AROUND 0230 IN STABLE CONDTION. NO HEMIPLEGIA OR WEAKNESS NOTED. PT WAS VERY CONFUSED AAOX2, DID NOT KNOW WHERE SHE WAS OR WHY SHE WAS HERE. THE MORNING WENT ON PT BECAME LESS CONFUSED AND WAS ABLE TO REMEMBER THE DAY, DATE, AND EVENTS LEADING UP TO HER COMING IN. VITALS WERE STABLE, BP AROUND 120 SYSTOLIC, HR IN THE 70'S, O2 SATS IN THE HIGH 90'S ON ROOM AIR. PT STATED HAVING INCREASING PAIN ON HER RIGHT SIDE FROM PREVIUOS SURGERY. PT DID NOT HAVE ANY SEIZURE ACTIVITY. WILL CONTINUE TO MONITOR UNTIL SHIFT CHANGE.
--- NOTE | 2020-05-09 17:23 | NUR ---
PT RETURNS TO UNIT AND STATES CANNOT FIND HER RX FOR NORCO. RX GIVEN TO PT WITH DISCHARGE PAPERWORK. PAPERWORK PLACED IN [facility] DISCHARGE FOLDER AND GIVEN TO PT. PT STATES SHE TOOK A CAB TO [employer] AND GOT IN HER CAR. ADVISED CALLING [employer] TO SEE IF LEFT IN CAB. NO ITEMS LEFT IN ROOM AT DISCHARGE. BOILER BLOWER SPOKE TO PT AND ASSISTED IN CALLING [employer]. PT THEN REPORTS SHE LEFT HER PERSCRIPTION ON THE BED IN HER ROOM. NO ITEMS LEFT IN ROOM OR FOUND BY MUSIC LIBRARY ASSISTANT. PT STATES "I KNEW THIS WAS GOING TO HAPPEN". LEAVES UNIT.
== END 2020-05-09 16:16 | disposition home or self-care (01) ==
LOC: ER 20:43 → PCU 20:44
PROVIDERS: Physician Assistant; ADMIT Internal Medicine
DX: G93.40 Encephalopathy, unspecified (principal); G31.84 Mild cognitive impairment of uncertain or unknown etiology; I67.9 Cerebrovascular disease, unspecified; F10.20 Alcohol dependence, uncomplicated; G89.29 Other chronic pain; M54.9 Dorsalgia, unspecified; M54.2 Cervicalgia; I89.0 Lymphedema, not elsewhere classified; M10.9 Gout, unspecified; F17.210 Nicotine dependence, cigarettes, uncomplicated; M81.0 Age-related osteoporosis without current pathological fracture; F51.04 Psychophysiologic insomnia; Z88.0 Allergy status to penicillin; Z23 Encounter for immunization; Z79.899 Other long term (current) drug therapy; Z86.73 Personal history of transient ischemic attack (TIA), and cerebral infarction without residual deficits; Y90.0 Blood alcohol level of less than 20 mg/100 ml
CPT/HCPCS: 36415; 51701; 70450; 71045; 80053; 81003; 82140; 83605; 84146; 84484; 85025; 93005; 93010; 93306; 93880; 99285-25; G0480; J3010; J3411; J3475; J7042

== ENCOUNTER 2020-05-14 16:44 | Emergency (ER) | payer MEDICARE ==
[~2020-05-14] VITALS: Ht 165.1 cm; Wt 69.0 kg
== END 2020-05-14 20:10 | disposition home or self-care (01) ==
LOC: ER 16:44
DX: S81.811A Laceration without foreign body, right lower leg, initial encounter (principal); Z88.0 Allergy status to penicillin; Z88.2 Allergy status to sulfonamides; F17.210 Nicotine dependence, cigarettes, uncomplicated; W45.8XXA Other foreign body or object entering through skin, initial encounter; Y93.89 Activity, other specified
CPT/HCPCS: 12004; 99283-25

== ENCOUNTER 2020-05-24 15:51 | Emergency (ER) | payer MEDICARE ==
[~2020-05-24] VITALS: Ht 167.6 cm; Wt 68.0 kg
[2020-05-24] MEDS ORDERED: Cleocin HCl300 MG PO (17:57)
[2020-09-13] MEDS ORDERED: Cleocin HCl300 MG PO (20:18)
== END 2020-05-24 18:12 | disposition home or self-care (01) ==
LOC: ER 15:51
DX: L03.115 Cellulitis of right lower limb (principal); S81.811D Laceration without foreign body, right lower leg, subsequent encounter; X58.XXXD Exposure to other specified factors, subsequent encounter
CPT/HCPCS: 99282

== ENCOUNTER 2020-09-18 02:18 | Emergency (ER) | payer MEDICARE ==
[~2020-09-18] VITALS: Ht 167.6 cm; Wt 70.3 kg
[2020-09-18] MEDS ORDERED: CEPH500 PO (05:34)
[2020-09-18] MEDS ORDERED: Vibramycin100 MG PO (05:34)
== END 2020-09-18 06:00 | disposition home or self-care (01) ==
LOC: ER 02:18
DX: L03.116 Cellulitis of left lower limb (principal); L03.115 Cellulitis of right lower limb; F17.210 Nicotine dependence, cigarettes, uncomplicated; Z88.0 Allergy status to penicillin; Z88.2 Allergy status to sulfonamides
CPT/HCPCS: 99283; A9270

== ENCOUNTER → 2020-10-11 | Outpatient (CLI) | payer MEDICARE ==
[2020-10-11 18:53] LABS: BASOPHILS ABSOLUTE AUTO 0.06 K/mm3 (0.00-0.23); BASOPHILS PERCENT AUTO 1 % (0-2); EOSINOPHILS PERCENT AUTO 0 % (0-6); Hematocrit 43.6 % (33.0-51.0); Hemoglobin 14.9 g/dL (11.5-16.0); IMMATURE GRAN ABSOLUTE AUTO 0.03 K/mm3 (0.00-0.10); IMMATURE GRAN PERCENT AUTO 1 % (0-1); LYMPHOCYTES PERCENT AUTO 45 % (21-46); MONOCYTES ABSOLUTE AUTO 0.52 K/mm3 (0.16-1.47); MONOCYTES PERCENT AUTO 11 % (4-13); Mean Corpuscular HGB 36.5 pg (26.0-34.0); Mean Corpuscular HGB Conc 34.2 g/dL (31.5-36.5); Mean Corpuscular Volume 107 fL (80-100); Mean Platelet Volume 11.4 fL (9.1-12.4); NEUTROPHILS ABSOLUTE AUTO 1.98 K/mm3 (1.96-9.15); NEUTROPHILS PERCENT AUTO 42 % (41-73); Platelet Count 173 K/mm3 (150-400); RDW Coefficient Variation 13.6 % (11.7-14.2); RDW Standard Deviation 53.7 fL (35.1-46.3); Red Blood Cell Count 4.08 M/mm3 (3.80-5.20); White Blood Cell Count 4.69 K/mm3 (4.00-11.30)
[2020-10-11 18:58] LABS: Alanine Aminotransfer (ALT/SGP 53 U/L (12-78); Albumin, Blood 3.6 g/dL (3.4-5.0); Alk Phos 157 U/L (50-136); Anion Gap 8 mmol/L (6-16); Aspartate Aminotrans (AST/SGOT 134 U/L (12-37); Bilirubin, Total 0.9 mg/dL (0.1-1.0); Blood Urea Nitrogen 3 mg/dL (8-24); Bun/Creatinine Ratio 5.7 (12.0-20.0); CO2, Blood 29 mmol/L (21-32); Calcium, Blood 8.9 mg/dL (8.5-10.1); Chloride, Blood 102 mmol/L (98-108); Creatinine, Blood 0.52 mg/dL (0.40-1.00); Globulin, Blood 3.6 g/dL (2.2-4.0); Glomerular Filtration Rate >60 (60-); Glucose, Blood 82 mg/dL (70-99); Potassium, Blood 3.8 mmol/L (3.5-5.5); Sodium, Blood 139 mmol/L (136-145); Total Protein, Blood 7.2 g/dL (6.4-8.2)
== END | disposition home or self-care (01) ==
LOC: LAB 14:30 → LAB SHORT 14:30
PROVIDERS: Nurse Practitioner Family
DX: M54.5 Low back pain (principal); R22.40 Localized swelling, mass and lump, unspecified lower limb; L03.116 Cellulitis of left lower limb
CPT/HCPCS: 80053; 85025

== ENCOUNTER 2020-10-13 18:46 | Emergency (ER) | payer MEDICARE ==
[~2020-10-13] VITALS: Ht 167.6 cm; Wt 72.6 kg
== END 2020-10-13 20:10 | disposition home or self-care (01) ==
LOC: ER 18:46
DX: S93.601A Unspecified sprain of right foot, initial encounter (principal); F17.210 Nicotine dependence, cigarettes, uncomplicated; Z88.0 Allergy status to penicillin; Z88.2 Allergy status to sulfonamides; W10.9XXA Fall (on) (from) unspecified stairs and steps, initial encounter
CPT/HCPCS: 73590; 73620; 99283-25

== ENCOUNTER 2021-04-03 07:43 | Emergency (ER) | payer MEDICARE ==
[~2021-04-03] VITALS: Ht 165.1 cm; Wt 69.0 kg
[2021-04-03 08:41] LABS: BASOPHILS ABSOLUTE AUTO 0.09 K/mm3 (0.00-0.23); BASOPHILS PERCENT AUTO 1 % (0-2); EOSINOPHILS ABSOLUTE AUTO 0.01 K/mm3 (0.00-0.68); EOSINOPHILS PERCENT AUTO 0 % (0-6); Hematocrit 41.6 % (33.0-51.0); Hemoglobin 14.1 g/dL (11.5-16.0); IMMATURE GRAN PERCENT AUTO 1 % (0-1); LYMPHOCYTES ABSOLUTE AUTO 2.47 K/mm3 (0.84-5.20); LYMPHOCYTES PERCENT AUTO 35 % (21-46); MONOCYTES ABSOLUTE AUTO 0.79 K/mm3 (0.16-1.47); MONOCYTES PERCENT AUTO 11 % (4-13); Mean Corpuscular HGB 35.9 pg (26.0-34.0); Mean Corpuscular HGB Conc 33.9 g/dL (31.5-36.5); Mean Corpuscular Volume 106 fL (80-100); NEUTROPHILS ABSOLUTE AUTO 3.56 K/mm3 (1.96-9.15); NEUTROPHILS PERCENT AUTO 51 % (41-73); RDW Coefficient Variation 12.7 % (11.7-14.2); Red Blood Cell Count 3.93 M/mm3 (3.80-5.20); White Blood Cell Count 7.02 K/mm3 (4.00-11.30)
[2021-04-03 08:42] LABS: Platelet Count 162 K/mm3 (150-400)
[2021-04-03 08:58] LABS: Alanine Aminotransfer (ALT/SGP 35 U/L (12-78); Albumin, Blood 3.2 g/dL (3.4-5.0); Albumin/Globulin Ratio 0.8 (0.8-1.8); Alk Phos 182 U/L (50-136); Anion Gap 8 mmol/L (6-16); Aspartate Aminotrans (AST/SGOT 63 U/L (12-37); Bilirubin, Total 0.6 mg/dL (0.1-1.0); Blood Urea Nitrogen 4 mg/dL (8-24); Bun/Creatinine Ratio 7.9 (12.0-20.0); CO2, Blood 28 mmol/L (21-32); Calcium, Blood 8.8 mg/dL (8.5-10.1); Chloride, Blood 101 mmol/L (98-108); Creatinine, Blood 0.51 mg/dL (0.40-1.00); Globulin, Blood 4.1 g/dL (2.2-4.0); Glomerular Filtration Rate >60 (60-); Glucose, Blood 89 mg/dL (70-99); Potassium, Blood 3.9 mmol/L (3.5-5.5); Sodium, Blood 137 mmol/L (136-145); Total Protein, Blood 7.3 g/dL (6.4-8.2); Troponin I <0.015 ng/mL (0.000-0.040)
[2021-04-03] MEDS ORDERED: CEPH500 PO (11:03)
[2021-04-03] MEDS ORDERED: Percocet 5-3251 EACH PO (11:11)
[2021-04-05] MEDS ORDERED: Vibramycin100 MG PO (22:21)
[2021-04-05] MEDS ORDERED: Roxicodone5 MG PO (22:21)
[2021-04-05] MEDS ORDERED: Lasix20 MG PO (22:21)
== END 2021-04-03 11:26 | disposition home or self-care (01) ==
LOC: ER 07:43
PROVIDERS: Emergency Medicine
DX: L03.115 Cellulitis of right lower limb (principal); L03.116 Cellulitis of left lower limb; F17.210 Nicotine dependence, cigarettes, uncomplicated; Z88.0 Allergy status to penicillin; Z88.2 Allergy status to sulfonamides
CPT/HCPCS: 36415; 71045; 80053; 83880; 84484; 85025; 93005; 93010; 99285-25; A9270

== ENCOUNTER 2021-04-06 23:40 | Emergency (ER) | payer MEDICARE ==
[~2021-04-06] VITALS: Ht 167.6 cm; Wt 71.7 kg
[~2021-04-06 23:40] MED LIST changes: +Lasix20 MG PO; +Roxicodone5 MG PO
== END 2021-04-07 01:08 | disposition home or self-care (01) ==
LOC: ER 23:40
DX: L03.115 Cellulitis of right lower limb (principal); L03.116 Cellulitis of left lower limb; Z88.0 Allergy status to penicillin; Z88.2 Allergy status to sulfonamides
CPT/HCPCS: 99282; A9270

== ENCOUNTER 2021-04-12 08:50 | Observation (INO) | payer MEDICARE ==
[~2021-04-12] VITALS: Ht 167.6 cm; Wt 73.5 kg
[2021-04-12 10:10] LABS: BASOPHILS ABSOLUTE AUTO 0.06 K/mm3 (0.00-0.23); BASOPHILS PERCENT AUTO 1 % (0-2); EOSINOPHILS ABSOLUTE AUTO 0.01 K/mm3 (0.00-0.68); EOSINOPHILS PERCENT AUTO 0 % (0-6); Hematocrit 38.2 % (33.0-51.0); Hemoglobin 12.7 g/dL (11.5-16.0); IMMATURE GRAN ABSOLUTE AUTO 0.07 K/mm3 (0.00-0.10); IMMATURE GRAN PERCENT AUTO 1 % (0-1); LYMPHOCYTES ABSOLUTE AUTO 1.86 K/mm3 (0.84-5.20); LYMPHOCYTES PERCENT AUTO 29 % (21-46); MONOCYTES ABSOLUTE AUTO 0.88 K/mm3 (0.16-1.47); MONOCYTES PERCENT AUTO 14 % (4-13); Mean Corpuscular HGB 35.9 pg (26.0-34.0); Mean Corpuscular HGB Conc 33.2 g/dL (31.5-36.5); Mean Corpuscular Volume 108 fL (80-100); Mean Platelet Volume 8.9 fL (9.1-12.4); NEUTROPHILS ABSOLUTE AUTO 3.55 K/mm3 (1.96-9.15); NEUTROPHILS PERCENT AUTO 55 % (41-73); Platelet Count 185 K/mm3 (150-400); RDW Coefficient Variation 13.2 % (11.7-14.2); RDW Standard Deviation 52.3 fL (35.1-46.3); Red Blood Cell Count 3.54 M/mm3 (3.80-5.20); White Blood Cell Count 6.43 K/mm3 (4.00-11.30)
[2021-04-12 10:29] LABS: Alanine Aminotransfer (ALT/SGP 33 U/L (12-78); Albumin, Blood 2.7 g/dL (3.4-5.0); Albumin/Globulin Ratio 0.7 (0.8-1.8); Alk Phos 181 U/L (50-136); Anion Gap 7 mmol/L (6-16); Aspartate Aminotrans (AST/SGOT 69 U/L (12-37); Bilirubin, Total 0.6 mg/dL (0.1-1.0); Blood Urea Nitrogen 6 mg/dL (8-24); Bun/Creatinine Ratio 9.6 (12.0-20.0); CO2, Blood 30 mmol/L (21-32); Calcium, Blood 8.5 mg/dL (8.5-10.1); Chloride, Blood 98 mmol/L (98-108); Creatinine, Blood 0.62 mg/dL (0.40-1.00); Glomerular Filtration Rate >60 (60-); Glucose, Blood 92 mg/dL (70-99); Potassium, Blood 3.2 mmol/L (3.5-5.5); Sodium, Blood 135 mmol/L (136-145); Total Protein, Blood 6.7 g/dL (6.4-8.2)
[2021-04-12] MEDS ORDERED: Cleocin HCl150 MG PO (10:45)
[2021-04-12 16:06] LABS: Influenza A, PCR NEGATIVE (NEGATIVE); Influenza B, PCR NEGATIVE (NEGATIVE); Resp Syncytial Virus, PCR NEGATIVE (NEGATIVE); SARS-Cov-2 (COVID-19) PCR, MMC NEGATIVE (NEGATIVE)
--- NOTE | 2021-04-12 17:25 | NUR ---
SUMMARY: REPORT RECEIVED FROM ED RN. PT TO UNIT AT 1550. PT IS A/O, VSS. REPORTING PAIN IN BILAT LEGS WERE THERE IS CELLULITIS, MEDICATION GIVEN. NO SAFETY CONCERNS SINCE ADMISSION. PLAN IS FOR Q6 ANTIOBIOTICS. WILL CTM AND REPORT TO NOC RN
--- NOTE | 2021-04-13 00:03 | NUR ---
PT ARRIVED ON UNIT IN RM 224 FROM ED AT 2240. HE ARRIVED BY STRETCHER AND ASSISTED WITH GOING TO BED. HE IS ALERT AND ORIENTED, LAB VALUES SUCH PLATELET, WBCS ARE LOW. PT PLACED ON NEUTROPENIC PRECAUTIONS. CALLED AND NOTIFIED OF LOW LAB VALUES. STATED LOWER VALUES WERE AN IMPROVEMENT FROM EARLIER RESULTS. PT GIVEN HIS CALL LIGHT AND ENCOURAGED TO CALL FOR HELP WHEN ASSISTANCE IS NEEDED HE IS MONITORED.
--- NOTE | 2021-04-13 04:59 | NUR ---
PT IS IN BED AT THIS TIME WHERE SHE REMAINS MUCH OF THE NIGHT. SHE IS ALERT AND ORIENTED, CONDITION IS STABLE. SWELLING NOTED IN BLE. ASLO C/O LEGS SORENESS. BEDREST IS ENCOURAGED, SHE IS MEDICATED FOR PAIN INDICATED, MEDICATED WITH IV ABX FOR BLE CELLULITIS, PT TOLERATES ABX TX. SHE IS ALSO ENCOURAGED TO PRACTICE LEG ELEVATION FOR COMFORT AND RELIEF. HER CALL BAUTISTA PLACED NEAR HER AND URGED TO CALL FOR HELP WHEN ASSISTANCE IS NEEDED SHE IS MONITORED.
[2021-04-13 09:07] LABS: Albumin, Blood 2.6 g/dL (3.4-5.0); Anion Gap 9 mmol/L (6-16); Blood Urea Nitrogen 5 mg/dL (8-24); Bun/Creatinine Ratio 10.2 (12.0-20.0); CO2, Blood 30 mmol/L (21-32); Calcium, Blood 8.7 mg/dL (8.5-10.1); Chloride, Blood 99 mmol/L (98-108); Creatinine, Blood 0.49 mg/dL (0.40-1.00); Glomerular Filtration Rate >60 (60-); Glucose, Blood 91 mg/dL (70-99); Phosphorus, Blood 3.3 mg/dL (2.5-4.9); Potassium, Blood 3.5 mmol/L (3.5-5.5); Sodium, Blood 138 mmol/L (136-145)
[2021-04-13] MEDS ORDERED: Acetaminophen650 M1 PO (11:58)
[2021-04-13] MEDS ORDERED: NAPR500 PO (11:59)
[2021-04-13] MEDS ORDERED: CEPH500 PO (12:00)
[2021-04-13] MEDS ORDERED: DOXY100 PO (12:01)
--- NOTE | 2021-04-13 12:11 | NUR ---
DISCHARGE: DISCHARGE INSTUCTIONS GIVEN TO PATIENT AT THIS TIME. PATIENT VERBALIZED UNDERSTANDING. EDUCATED PATIENT ON TAKING ALL OF ANTIBIOTICS UNTIL COMPLETE EVEN IF FEELING BETTER. PATIENT INSTRUCTED TO TAKE ANTIBIOTICS ORDERED BY THE DOCTOR. IV REMOVED. NO SIGNS OR SYMPTOMS ACUTE DISTRESS NOTED AT THIS TIME. ALL QUESTIONS ANSWERED.
== END 2021-04-13 14:00 | disposition home or self-care (01) ==
LOC: ER 08:50 → ERHOLD 08:51 → UNDODEPER 15:45 → SURS 15:49
PROVIDERS: Family Medicine; Physician Assistant; ADMIT Internal Medicine
DX: L03.116 Cellulitis of left lower limb (principal); L03.115 Cellulitis of right lower limb; E87.6 Hypokalemia; I87.2 Venous insufficiency (chronic) (peripheral); M81.0 Age-related osteoporosis without current pathological fracture; G31.84 Mild cognitive impairment of uncertain or unknown etiology; F17.200 Nicotine dependence, unspecified, uncomplicated; Z20.822 Contact with and (suspected) exposure to COVID-19; Z96.642 Presence of left artificial hip joint; Z87.81 Personal history of (healed) traumatic fracture; Z88.2 Allergy status to sulfonamides; Z88.0 Allergy status to penicillin
CPT/HCPCS: 0241U; 36415; 80053; 80069; 85025; 93970; A9270; J0690; J1650

== ENCOUNTER 2021-04-17 05:22 | Observation (INO) | payer MEDICARE ==
[~2021-04-17] VITALS: Ht 167.6 cm; Wt 84.0 kg
[~2021-04-17 05:22] MED LIST changes: +Acetaminophen650 M1 PO; +Cleocin HCl150 MG PO; +DOXY100 PO
[2021-04-17 07:59] LABS: BASOPHILS ABSOLUTE AUTO 0.05 K/mm3 (0.00-0.23); BASOPHILS PERCENT AUTO 1 % (0-2); EOSINOPHILS ABSOLUTE AUTO 0.01 K/mm3 (0.00-0.68); EOSINOPHILS PERCENT AUTO 0 % (0-6); Hematocrit 42.8 % (33.0-51.0); Hemoglobin 14.3 g/dL (11.5-16.0); IMMATURE GRAN PERCENT AUTO 1 % (0-1); LYMPHOCYTES PERCENT AUTO 21 % (21-46); MONOCYTES ABSOLUTE AUTO 1.13 K/mm3 (0.16-1.47); MONOCYTES PERCENT AUTO 12 % (4-13); Mean Corpuscular HGB Conc 33.4 g/dL (31.5-36.5); Mean Corpuscular Volume 108 fL (80-100); Mean Platelet Volume 9.1 fL (9.1-12.4); NEUTROPHILS ABSOLUTE AUTO 6.02 K/mm3 (1.96-9.15); NEUTROPHILS PERCENT AUTO 65 % (41-73); Platelet Count 254 K/mm3 (150-400); RDW Coefficient Variation 13.5 % (11.7-14.2); RDW Standard Deviation 53.4 fL (35.1-46.3); Red Blood Cell Count 3.97 M/mm3 (3.80-5.20); White Blood Cell Count 9.21 K/mm3 (4.00-11.30)
[2021-04-17 08:09] LABS: Alanine Aminotransfer (ALT/SGP 30 U/L (12-78); Albumin, Blood 3.2 g/dL (3.4-5.0); Albumin/Globulin Ratio 0.7 (0.8-1.8); Alk Phos 208 U/L (50-136); Anion Gap 9 mmol/L (6-16); Aspartate Aminotrans (AST/SGOT 72 U/L (12-37); Bilirubin, Total 1.4 mg/dL (0.1-1.0); Blood Urea Nitrogen 9 mg/dL (8-24); Bun/Creatinine Ratio 17.8 (12.0-20.0); CO2, Blood 27 mmol/L (21-32); Calcium, Blood 9.4 mg/dL (8.5-10.1); Chloride, Blood 98 mmol/L (98-108); Creatinine, Blood 0.51 mg/dL (0.40-1.00); Globulin, Blood 4.9 g/dL (2.2-4.0); Glomerular Filtration Rate >60 (60-); Glucose, Blood 78 mg/dL (70-99); Potassium, Blood 3.5 mmol/L (3.5-5.5); Sodium, Blood 134 mmol/L (136-145); Total Protein, Blood 8.1 g/dL (6.4-8.2)
--- NOTE | 2021-04-17 18:27 | NUR ---
Bettina Barraza is 66 year female with a history of recurring bilateral lower extremities cellulitis who is admitted with lower extremities redness and swelling. Per ER report ,patient has been last admitted on 04/12 and discharged on with keflex and Doxcycline for cellulitis. She was presented today with worsening redness and swelling. Lab at ER are unremarkable. She was given Ancef before transferred to medical floor for further treatment. Patient arrived on the floor via stretcher accompannied by her mother who gave brief history. She is alert and oriented x3 with forgetfulness.Daughter Reports that patient has been discharged some days ago but explained that she may have forgot to take her prescription keflex and Doxcycline. she brougt these medications along and which confirmed she has missed several doses. Bilateral lower extremities swelling noted especially towards the knee area. c/o of pain , Tylenol , toradol and tramadol were given with some relief.Vital signs are stable. Was oriented to use call light and bathroom.Continue to monitor.
--- NOTE | 2021-04-18 06:17 | NUR ---
PT AWAKE AND ALERT WITH FREQUENT PERIODS OF FORGETFULNESS AND CONFUSION. ASKING THE SAME QUESTIONS PERIODICALLY. TEARFUL WHEN REORIENTED AND REMINDED. BLE WITH REDNESS, INCREASED WARMTH, EDEMA AND TENDERNESS TO PALPATION, RIGHT NORE SIGNIFICANTLY THAN LEFT. 2GM IV CEFAZOLIN Q6HRS CONTINUED, TOLERATED WELL. IV SITE BENIGN. C/O BLE PAIN, MEDICATED WITH PRN TRAMADOL PER EMAR WITH GOOD EFFECT. PT WITH OCCASIONAL URINARY INCONTINENCE, PULL-UPS IN PLACE. BED REMAINS IN LOW POSITION WITH THE CALL LIGHT WITHIN EASY REACH. WILL CONTINUE TO MONITOR.
[2021-04-18 08:09] LABS: COMPLEMENT C3, SERUM 149 mg/dL (82-167); COMPLEMENT C4, SERUM 18 mg/dL (12-38)
--- NOTE | 2021-04-18 17:14 | NUR ---
SHIFT SUMMARY PATIENT IS ALERT AND ORIENTED X3 SOME FORGETFULNESS NOTES. PLEASANT AND COOPERATIVE WITH CARE. ABX WAS STOPPED TODAY. PATIENT'S PAIN IS BEING CONTROLLED. ELEVATING LEGS. MEDICATING PER THE EMAR PRN. THE PATIENT WAS WORRIED ABOUT GETTING THINGS FROM HOME THIS EVENING. THE PATIENT IS READING A BOOK WHILE RESTING IN BED. NO ACUTE CHANGES THIS SHIFT. THE PATIENT MAY POSSIBLY DC TOMORROW. VSS, CALL LIGHT WITHIN REACH. THIS NURSE WILL CONTINUE TO CARE FOR THE PATIENT UNTIL SHIFT REPORT IS GIVEN TO ONCOMING NURSE.
[2021-04-18 19:10] LABS: ANTI-DSDNA ANTIBODIES 1 IU/mL (0-9); RNP ANTIBODIES 0.5 AI (0.0-0.9); SJOGREN'S ANTI-SS-A <0.2 AI (0.0-0.9); SJOGREN'S ANTI-SS-B <0.2 AI (0.0-0.9); SMITH ANTIBODIES <0.2 AI (0.0-0.9)
[2021-04-19 06:34] LABS: Anion Gap 7 mmol/L (6-16); Blood Urea Nitrogen 4 mg/dL (8-24); Bun/Creatinine Ratio 8.4 (12.0-20.0); CO2, Blood 31 mmol/L (21-32); Chloride, Blood 106 mmol/L (98-108); Creatinine, Blood 0.48 mg/dL (0.40-1.00); Glomerular Filtration Rate >60 (60-); Glucose, Blood 88 mg/dL (70-99); Potassium, Blood 3.9 mmol/L (3.5-5.5)
[2021-04-19 06:37] LABS: Sodium, Blood 144 mmol/L (136-145)
[2021-04-19] MEDS ORDERED: VISBIOME 112.51 EACH PO (12:29)
[2021-04-19] MEDS ORDERED: Norco 10-325 T1 EACH PO (12:29)
[2021-04-19] MEDS ORDERED: SENN187 PO (12:29)
[2021-04-19] MEDS ORDERED: HYDCHL25 PO (12:32)
[2021-04-19] MEDS ORDERED: CLIN300 PO (12:32)
[2021-04-19] MEDS ORDERED: POTA10T PO (12:33)
--- NOTE | 2021-04-19 14:24 | NUR ---
DISCHARGE NOTE PATIENT WAS DISCHARGED HOME TO FAMILY VIA WHEELCHAIR. PATIENT WAS GIVEN DISCHARGE INSTRUCTIONS. PATIENT VERBALLY UNDERSTOOD THEM. BELONGINGS WERE WITH THE PATIENT AT THE TIME OF DISCHARGE AT 1315. VSS. PATIENT WILL FOLLOW UP WITH THEIR PCP NEEDED.
== END 2021-04-19 13:13 | disposition home or self-care (01) ==
LOC: ER 05:22 → MEDS 05:23
PROVIDERS: Emergency Medicine; Nurse Practitioner Acute Care; ADMIT Internal Medicine
DX: I89.0 Lymphedema, not elsewhere classified (principal); R74.01 Elevation of levels of liver transaminase levels; D75.89 Other specified diseases of blood and blood-forming organs; F17.210 Nicotine dependence, cigarettes, uncomplicated; R41.3 Other amnesia; Z91.14 Patient's other noncompliance with medication regimen; E66.01 Morbid (severe) obesity due to excess calories
CPT/HCPCS: 36415; 80048; 80053; 83735; 85025; 85651; 86140; 86160; 86225; 86235; 96374; 96375; 96376; 99284-25; A9270; G0378; J0690; J1170; J1885; J1940; J2405; J7030

== ENCOUNTER 2021-09-12 18:18 | Emergency (ER) | payer MEDICARE ==
[~2021-09-12] VITALS: Ht 165.1 cm; Wt 72.6 kg
[~2021-09-12 18:18] MED LIST changes: +CLIN300 PO; +HYDCHL25 PO; +Norco 10-325 T1 EACH PO; +POTA10T PO; +SENN187 PO; +VISBIOME 112.51 EACH PO
[2021-09-12 19:02] LABS: BASOPHILS ABSOLUTE AUTO 0.07 K/mm3 (0.00-0.23); BASOPHILS PERCENT AUTO 1 % (0-2); EOSINOPHILS ABSOLUTE AUTO 0.03 K/mm3 (0.00-0.68); EOSINOPHILS PERCENT AUTO 0 % (0-6); Hematocrit 43.5 % (33.0-51.0); IMMATURE GRAN ABSOLUTE AUTO 0.04 K/mm3 (0.00-0.10); IMMATURE GRAN PERCENT AUTO 1 % (0-1); LYMPHOCYTES ABSOLUTE AUTO 2.09 K/mm3 (0.84-5.20); LYMPHOCYTES PERCENT AUTO 31 % (21-46); MONOCYTES ABSOLUTE AUTO 0.54 K/mm3 (0.16-1.47); MONOCYTES PERCENT AUTO 8 % (4-13); Mean Corpuscular HGB 36.6 pg (26.0-34.0); Mean Corpuscular HGB Conc 34.5 g/dL (31.5-36.5); Mean Corpuscular Volume 106 fL (80-100); Mean Platelet Volume 9.3 fL (9.1-12.4); NEUTROPHILS ABSOLUTE AUTO 4.01 K/mm3 (1.96-9.15); NEUTROPHILS PERCENT AUTO 59 % (41-73); Platelet Count 199 K/mm3 (150-400); RDW Coefficient Variation 12.5 % (11.7-14.2); RDW Standard Deviation 48.8 fL (35.1-46.3); White Blood Cell Count 6.78 K/mm3 (4.00-11.30)
[2021-09-12 19:54] LABS: Alanine Aminotransfer (ALT/SGP 63 U/L (12-78); Albumin, Blood 3.3 g/dL (3.4-5.0); Albumin/Globulin Ratio 0.8 (0.8-1.8); Alk Phos 172 U/L (50-136); Anion Gap 10 mmol/L (6-16); Aspartate Aminotrans (AST/SGOT 178 U/L (12-37); Blood Urea Nitrogen 4 mg/dL (8-24); Bun/Creatinine Ratio 7.8 (12.0-20.0); CO2, Blood 27 mmol/L (21-32); Calcium, Blood 8.8 mg/dL (8.5-10.1); Chloride, Blood 105 mmol/L (98-108); Creatinine, Blood 0.52 mg/dL (0.40-1.00); Glomerular Filtration Rate >60 (60-); Glucose, Blood 91 mg/dL (70-99); Potassium, Blood 3.3 mmol/L (3.5-5.5); Sodium, Blood 142 mmol/L (136-145); Total Protein, Blood 7.3 g/dL (6.4-8.2)
== END 2021-09-12 21:33 | disposition home or self-care (01) ==
LOC: ER 18:18
PROVIDERS: Physician Assistant
DX: R51.9 Headache, unspecified (principal); H53.8 Other visual disturbances; Z88.0 Allergy status to penicillin; Z88.2 Allergy status to sulfonamides
CPT/HCPCS: 36415; 70450; 80053; 83690; 83880; 84484; 85025; 93005; 93010; A9270; J1200; J1885; J2765

== ENCOUNTER 2021-12-26 11:09 | Emergency (ER) | payer MEDICARE ==
[~2021-12-26] VITALS: Ht 165.1 cm; Wt 70.8 kg
[2021-12-26] MEDS ORDERED: TRAZ50 PO (11:33)
[2021-12-26] MEDS ORDERED: Roxicodone5 MG PO (12:40)
== END 2021-12-26 13:19 | disposition home or self-care (01) ==
LOC: ER 11:09
DX: S60.811A Abrasion of right wrist, initial encounter (principal); M25.512 Pain in left shoulder; M25.511 Pain in right shoulder; F17.210 Nicotine dependence, cigarettes, uncomplicated; Z79.899 Other long term (current) drug therapy; Z88.0 Allergy status to penicillin; Z88.2 Allergy status to sulfonamides; W19.XXXA Unspecified fall, initial encounter; Y92.009 Unspecified place in unspecified non-institutional (private) residence as the place of occurrence of the external cause
CPT/HCPCS: 73030; 73110; A9270

== ENCOUNTER 2022-02-02 05:15 | Emergency (ER) | payer MEDICARE ==
[~2022-02-02] VITALS: Ht 167.6 cm; Wt 72.6 kg
[~2022-02-02 05:15] MED LIST changes: +TRAZ50 PO
[2022-02-02] MEDS ORDERED: Voltaren100 GM TOP (06:36)
== END 2022-02-02 06:58 | disposition home or self-care (01) ==
LOC: ER 05:15
DX: S40.012A Contusion of left shoulder, initial encounter (principal); F17.210 Nicotine dependence, cigarettes, uncomplicated; W19.XXXA Unspecified fall, initial encounter; Z88.0 Allergy status to penicillin; Z88.2 Allergy status to sulfonamides
CPT/HCPCS: 73060; A9270; J1885

== ENCOUNTER 2022-04-03 05:50 | Emergency (ER) | payer MEDICARE ==
[~2022-04-03] VITALS: Ht 165.1 cm; Wt 68.0 kg
[~2022-04-03 05:50] MED LIST changes: +Voltaren100 GM TOP
== END 2022-04-03 13:48 | disposition home or self-care (01) ==
LOC: ER 05:50
DX: S40.012A Contusion of left shoulder, initial encounter (principal); W06.XXXA Fall from bed, initial encounter; F17.210 Nicotine dependence, cigarettes, uncomplicated; Z88.0 Allergy status to penicillin; Z88.2 Allergy status to sulfonamides; Z79.899 Other long term (current) drug therapy
CPT/HCPCS: 73030; A9270; J1885

== ENCOUNTER 2022-04-16 20:04 | Emergency (ER) | payer MEDICARE ==
[~2022-04-16] VITALS: Ht 165.1 cm; Wt 70.8 kg
[2022-04-16 20:47] LABS: BASOPHILS ABSOLUTE AUTO 0.06 K/mm3 (0.00-0.23); BASOPHILS PERCENT AUTO 1 % (0-2); EOSINOPHILS ABSOLUTE AUTO 0.16 K/mm3 (0.00-0.68); EOSINOPHILS PERCENT AUTO 2 % (0-6); Hemoglobin 14.6 g/dL (11.5-16.0); IMMATURE GRAN ABSOLUTE AUTO 0.07 K/mm3 (0.00-0.10); IMMATURE GRAN PERCENT AUTO 1 % (0-1); LYMPHOCYTES ABSOLUTE AUTO 2.42 K/mm3 (0.84-5.20); LYMPHOCYTES PERCENT AUTO 26 % (21-46); MONOCYTES ABSOLUTE AUTO 0.61 K/mm3 (0.16-1.47); MONOCYTES PERCENT AUTO 6 % (4-13); Mean Corpuscular HGB Conc 34.8 g/dL (31.5-36.5); Mean Corpuscular Volume 104 fL (80-100); NEUTROPHILS ABSOLUTE AUTO 6.16 K/mm3 (1.96-9.15); NEUTROPHILS PERCENT AUTO 65 % (41-73); Platelet Count 217 K/mm3 (150-400); RDW Coefficient Variation 11.9 % (11.7-14.2); RDW Standard Deviation 46.2 fL (35.1-46.3); Red Blood Cell Count 4.05 M/mm3 (3.80-5.20); White Blood Cell Count 9.48 K/mm3 (4.00-11.30)
[2022-04-16 21:05] LABS: Albumin, Blood 2.9 g/dL (3.4-5.0); Albumin/Globulin Ratio 0.8 (0.8-1.8); Bilirubin, Total 1.3 mg/dL (0.1-1.0); Bun/Creatinine Ratio 13.2 (12.0-20.0); Creatinine, Blood 0.6 mg/dL (0.40-1.00); Globulin, Blood 3.6 g/dL (2.2-4.0); Potassium, Blood 3.7 mmol/L (3.5-5.5); Total Protein, Blood 6.5 g/dL (6.4-8.2)
[2022-04-16 23:00] LABS: Source, Urine Straight Cath
[2022-04-16 23:03] LABS: Bilirubin, Urine Neg (Neg); Blood, Urine Neg (Neg); Glucose Qualitative, Urine Neg (Neg); Ketones, Urine Neg (Neg); Leukocyte Esterase, Urine 1+ (Neg); Nitrite, Urine Neg (Neg); Protein, Urine 1+ (Neg); Urobilinogen, Urine 1+ (Normal)
[2022-04-16 23:11] LABS: Appearance, Urine Clear (Clear); Color, Urine Yellow (P-Yellow)
[2022-04-16 23:12] LABS: Bacteria Few /hpf; Red Blood Cells, Urine Not Seen /hpf (0-2); Squamous Epithelial Cells Mod /hpf (Few)
[2022-04-17 01:17] LABS: Free Thyroxine 1.01 ng/dL (0.70-1.60); Thyroid Stimulating Hormone 2.49 uIU/mL (0.360-4.800); Triiodothyronine, Free 3.1 pg/mL (2.18-3.98)
== END 2022-04-17 03:03 | disposition home or self-care (01) ==
LOC: ER 20:04
PROVIDERS: Emergency Medicine; Student in an Organized Health Care Education/Training Program
DX: R41.0 Disorientation, unspecified (principal); F03.90 Unspecified dementia, unspecified severity, without behavioral disturbance, psychotic disturbance, mood disturbance, and anxiety; F17.210 Nicotine dependence, cigarettes, uncomplicated; Z88.0 Allergy status to penicillin; Z88.2 Allergy status to sulfonamides
CPT/HCPCS: 70450; 73120; 80053; 81001; 82947; 84439; 84443; 84481; 85025; 93005; 93010

== ENCOUNTER 2022-10-08 17:17 | Emergency (ER) | payer OTHER ==
[~2022-10-08] VITALS: Ht 167.6 cm; Wt 74.8 kg
[2022-10-08 17:57] LABS: BASOPHILS ABSOLUTE AUTO 0.07 K/mm3 (0.00-0.23); BASOPHILS PERCENT AUTO 1 % (0-2); EOSINOPHILS ABSOLUTE AUTO 0.15 K/mm3 (0.00-0.68); EOSINOPHILS PERCENT AUTO 2 % (0-6); Hematocrit 40.3 % (33.0-51.0); Hemoglobin 13.3 g/dL (11.5-16.0); IMMATURE GRAN ABSOLUTE AUTO 0.07 K/mm3 (0.00-0.10); IMMATURE GRAN PERCENT AUTO 1 % (0-1); LYMPHOCYTES ABSOLUTE AUTO 2.78 K/mm3 (0.84-5.20); LYMPHOCYTES PERCENT AUTO 34 % (21-46); MONOCYTES ABSOLUTE AUTO 0.54 K/mm3 (0.16-1.47); MONOCYTES PERCENT AUTO 7 % (4-13); Mean Corpuscular HGB 31.1 pg (26.0-34.0); Mean Corpuscular Volume 94 fL (80-100); Mean Platelet Volume 8.4 fL (9.1-12.4); NEUTROPHILS PERCENT AUTO 56 % (41-73); Platelet Count 257 K/mm3 (150-400); RDW Standard Deviation 43.5 fL (35.1-46.3); Red Blood Cell Count 4.27 M/mm3 (3.80-5.20); White Blood Cell Count 8.21 K/mm3 (4.00-11.30)
[2022-10-08 18:17] LABS: Albumin, Blood 3.9 g/dL (3.4-5.0); Albumin/Globulin Ratio 1.1 (0.8-1.8); Bilirubin, Total 0.5 mg/dL (0.1-1.0); Bun/Creatinine Ratio 9.2 (12.0-20.0); Calcium, Blood 9.5 mg/dL (8.5-10.1); Creatinine, Blood 0.65 mg/dL (0.40-1.00); Globulin, Blood 3.7 g/dL (2.2-4.0); Potassium, Blood 3.8 mmol/L (3.5-5.5); Total Protein, Blood 7.6 g/dL (6.4-8.2)
[2022-10-08 20:15] VITALS: BP 127/66
[2022-10-08] MEDS ORDERED: CEPH500 PO (20:30)
[2022-10-08] MEDS ORDERED: HYDR1TAB94 PO (20:56)
== END 2022-10-08 20:44 | disposition home or self-care (01) ==
LOC: ER 17:17
PROVIDERS: Physician Assistant
DX: I89.0 Lymphedema, not elsewhere classified (principal); L03.116 Cellulitis of left lower limb; L03.115 Cellulitis of right lower limb; S02.5XXA Fracture of tooth (traumatic), initial encounter for closed fracture; F03.90 Unspecified dementia, unspecified severity, without behavioral disturbance, psychotic disturbance, mood disturbance, and anxiety; F17.210 Nicotine dependence, cigarettes, uncomplicated; Z88.0 Allergy status to penicillin; Z88.2 Allergy status to sulfonamides; X58.XXXA Exposure to other specified factors, initial encounter
CPT/HCPCS: 80053; 85025; A9270

== ENCOUNTER 2022-12-25 04:26 | Emergency (ER) | payer BC ==
[~2022-12-25] VITALS: Ht 167.6 cm; Wt 72.6 kg
[2022-12-25 04:48] VITALS: BP 139/81
[2022-12-25 06:15] LABS: Source, Urine Clean Catch
[2022-12-25 06:18] LABS: Bilirubin, Urine Neg (Neg); Blood, Urine 1+ (Neg); Glucose Qualitative, Urine Neg (Neg); Ketones, Urine Neg (Neg); Leukocyte Esterase, Urine 2+ (Neg); Nitrite, Urine Neg (Neg); Protein, Urine Neg (Neg); Specific Gravity, Urine 1.015 (1.003-1.022); Urobilinogen, Urine NORM (Normal)
[2022-12-25 06:25] LABS: Appearance, Urine Clear (Clear); Color, Urine Yellow (P-Yellow)
[2022-12-25 06:27] LABS: Bacteria Few /hpf; Red Blood Cells, Urine Not Seen /hpf (0-2); Squamous Epithelial Cells Few /hpf (Few)
[2022-12-25] MEDS ORDERED: CEPH500 PO (06:34)
== END 2022-12-25 07:08 | disposition home or self-care (01) ==
LOC: ER 04:26
PROVIDERS: Emergency Medicine
DX: N39.0 Urinary tract infection, site not specified (principal); F03.90 Unspecified dementia, unspecified severity, without behavioral disturbance, psychotic disturbance, mood disturbance, and anxiety; F17.210 Nicotine dependence, cigarettes, uncomplicated; Z88.0 Allergy status to penicillin; Z88.2 Allergy status to sulfonamides
CPT/HCPCS: 81001; 87086; 99283

== ENCOUNTER 2023-11-06 21:17 | Emergency (ER) | payer MEDICARE ==
[~2023-11-06] VITALS: Ht 167.6 cm; Wt 70.3 kg
[2023-11-06 21:28] VITALS: BP 156/95
[2023-11-06] MEDS ORDERED: Ketoconazole 2% Cream 15 GM TOP ONE (23:05)
[2023-11-06] MEDS ORDERED: KETO15TC TOP (23:08)
[2023-11-06] MEDS ORDERED: CEPH500 PO (23:08)
[2023-11-06] MEDS ORDERED: Ketorolac Tromethamine 10 MG Tab PO ONE (23:10)
== END 2023-11-06 23:31 | disposition home or self-care (01) ==
LOC: ER 21:17
DX: N61.0 Mastitis without abscess (principal); L30.4 Erythema intertrigo; E11.9 Type 2 diabetes mellitus without complications; S20.02XA Contusion of left breast, initial encounter; S20.01XA Contusion of right breast, initial encounter; W19.XXXA Unspecified fall, initial encounter; F03.90 Unspecified dementia, unspecified severity, without behavioral disturbance, psychotic disturbance, mood disturbance, and anxiety; F17.210 Nicotine dependence, cigarettes, uncomplicated; Z88.0 Allergy status to penicillin; Z88.2 Allergy status to sulfonamides
CPT/HCPCS: 71046; 99283-25; A9270